=== PATIENT | female | born 1960 | race Caucasian/White ===

== ENCOUNTER 2017-11-28 06:43 | Day surgery (SDC) | payer BC ==
[2017-11-28] MEDS ORDERED: TRANDATE 20 MG/5 ML SYRINGE IV ONE (06:44)
[2017-11-28] MEDS ORDERED: VERSED 5 MG/5 ML IV ONE (06:44)
[2017-11-28] MEDS ORDERED: DIPRIVAN 200 MG/20 ML IV ONE (06:44)
[2017-11-28] MEDS ORDERED: Lactated Ringers 1,000 ML IV SCH (07:00)
[2017-11-28 09:42] VITALS: PULSE 80
[2017-11-28 10:13] VITALS: BP 116/70; O2SAT 98
--- NOTE | 2017-11-29 11:20 | OP ---
PROCEDURE DATE/TIME: 11/28/2017 0903 PREOPERATIVE DIAGNOSIS: Dysphagia. POSTOPERATIVE DIAGNOSES: 1) Gastritis. 2) Duodenitis. 3) Small hiatal hernia. 4) Gastric cardia polyp. PROCEDURE: EGD with cold forceps gastric polypectomy and biopsies. PROCEDURE PERFORMED BY: Alisa Pete M.D. ESTIMATED BLOOD LOSS: Minimal. COMPLICATIONS: None. ANESTHESIA: MAC. SPECIMEN: 1) Duodenal biopsy; rule out celiac disease. 2) Gastric antral biopsy; rule out Helicobacter pylori disease. 3) Gastric polyp in the cardia. HISTORY: This is a patient who presents with some dysphagia as well as some abdominal discomfort. She agrees for EGD. All risks, benefits, alternatives regarding EGD have been discussed with the patient. She understands and agrees and would like to proceed. DESCRIPTION OF PROCEDURE: She was seen in the preoperative area. Her H&P and con sent completely confirmed and reviewed. She was then brought back to the endoscopy suite, laid in the left lateral decubitus position. A complete time out was performed. The scope inserted gently into the mouth, oropharynx and down in the esophagus, stomach and duodenum. The duodenum had a slightly pale mucosa. No sign of any mass. No malignancy. Mild duodenitis in the first portion of the duodenum. We took biopsies with cold forceps to rule out celiac disease. These sites were hemostatic. We then withdrew the scope to the level of the stomach. In the stomach the patient had mild gastritis throughout the stomach. We took biopsies to rule out any Helicobacter pylori disease in the antrum. These sites are hemostatic. On retroflex view, we do visualize a small hiatal hernia as well as a gastric cardia polyp. The cardia polyp was completely removed with the cold forceps and sent to pathology separately as a gastric cardia polyp. I did not find any other issues here. We then confirmed hemostasis. Desufflated the stomach and carefully withdrew the scope. Gastroesophageal junction appeared to be normal except for the small hiatal hernia only 1 to 2 cm. The rest of the esophagus was normal. The patient tolerated the procedure well. There were no immediate complications. She is going to follow up with me in approximately one to two weeks to discuss the biopsy results. She will be placed on proton pump inhibitor therapy and we will repeat her EGD on an as needed basis.
== END 2017-11-28 10:15 | disposition home or self-care (01) ==
LOC: SDC 06:43
PROVIDERS: ATTEND Surgery
PROC: 0DB98ZX Excision of Duodenum, Via Natural or Artificial Opening Endoscopic, Diagnostic (ICD-10-PCS; principal; 2017-11-28)
PROC: 0DB78ZX Excision of Stomach, Pylorus, Via Natural or Artificial Opening Endoscopic, Diagnostic (ICD-10-PCS; 2017-11-28)
PROC: 0DB68ZX Excision of Stomach, Via Natural or Artificial Opening Endoscopic, Diagnostic (ICD-10-PCS; 2017-11-28)
DX: K29.70 Gastritis, unspecified, without bleeding (principal); K29.80 Duodenitis without bleeding; K44.9 Diaphragmatic hernia without obstruction or gangrene; K31.7 Polyp of stomach and duodenum
CPT/HCPCS: 00731; 88305; J2250; J2704